=== PATIENT | female | born 1990 | race Two or more races ===

== ENCOUNTER 2024-04-24 23:57 | Emergency (ER) | payer MEDICAID, OTHER ==
[~2024-04-24] VITALS: Ht 162.6 cm; Wt 88.0 kg
--- NOTE | 2024-04-25 00:21 | ED.PDOC ---
DRAPERY CUTTER HPI Comments 33-year-old female came to ER due to vaginal bleeding. Patient is a , approximately 10 weeks . Earlier today, she started having lower abdominal cramping pain associated with vaginal bleed. Denies any fever. Vital signs were stable on arrival. Chief Complaint: Vaginal Bleed Time Seen by MD: 00:21 Reviewed Notes: Nurses Notes Allergies: Coded Allergies: NO KNOWN ALLERGIES (Unverified , 04/25/24) Information Source: Patient, Friend Mode of Arrival: Ambulatory Timing: Hours Severity: Mild Vaginal Lesions: None Bleeding Quality: Bright Red Vaginal Mass: None Onset Of Mass/Bleeding: Spontaneous Sexual Activity: Last Consensual [place]: Unknown History of: Current Associated Signs and Symptoms: Vaginal Bleeding, Abdominal Pain Past Medical History PAST MEDICAL HISTORY: Denies Past Medical History (Other): Patient states she is currently 10 weeks . Surgical History: SALES ACCOUNT REPRESENTATIVE History: Denies all SALES ACCOUNT REPRESENTATIVE Hx 3 Para 2 Family History Family History: Reviewed,noncontributory to illness Social History Smoker: Non-Smoker Alcohol: Denies ETOH Use Drugs: Denies Drug Use Lives In: Home Constitutional: denies: chills, diaphoresis, fatigue, fever, malaise, sweats, weakness, others EENTM: denies: blurred vision, double vision, ear bleeding, ear discharge, ear drainage, ear pain, ear ringing, eye pain, eye redness, hearing loss, mouth pain, mouth swelling, nasal discharge, nose bleeding, nose congestion, nose pain, photophobia, tearing, throat pain, throat swelling, voice changes, others Respiratory: denies: cough, hemoptysis, orthopnea, SOB at rest, shortness of breath, SOB with excertion, stridor, wheezing, others Cardiovascular: denies: chest pain, dizzy spells, diaphoresis, Dyspnea on exertion, edema, irregular heart beat, left arm pain, lightheadedness, palpitations, PND, syncope, others Gastrointestinal: reports: abdominal pain; denies: abdomen distended, blood streaked bowels, constipated, diarrhea, dysphagia, difficulty swallowing, hematemesis, melena, nausea, poor appetite, poor fluid intake, rectal bleeding, rectal pain, vomiting, others Genitourinary: reports: abnormal vagina bleeding; denies: burning, dyspareunia, dysuria, flank pain, frequency, hematuria, incontinence, pain, , vagina discharge, urgency, others Neurological: denies: dizziness, fainting, headache, left sided numbness, left sided weakness, numbness, paresthesia, pre-existing deficit, right sided numbness, right sided weakness, seizure, speech problems, tingling, tremors, weakness, others Musculoskeletal: denies: back pain, gout, joint pain, joint swelling, muscle pain, muscle stiffness, neck pain, others Integumetry: denies: bruises, change in color, change in hair/nails, dryness, laceration, lesions, lumps, rash, wounds, others Allergic/Immunocompromised: denies: Difficulty Healing, Frequent Infections, Hives, Itching, others Hematologic/Lymphatic: denies: anemia, blood clots, easy bleeding, easy bruising, swollen glands, others Endocrine: denies: excessive hunger, excessive sweating, excessive thirst, excessive urination, flushing, intolerance to cold, intolerance to heat, unexplained weight gain, unexplained weight loss, others Psychiatric: denies: anxiety, bipolar disorder, depression, hopeless, panic disorder, schizophrenia, sleepless, suicidal, others Physical Exam General Appearance: Moderate Distress ([id number] distress due to abdomin al pain and anxiety related to her spotting concerns.), Normal HEENT: Normal ENT Inspection, Pharynx Normal, TMs Normal Neck: Full Range of Motion, Non-Tender, Normal, Normal Inspection Respiratory: Chest Non-Tender, Lungs Clear, No Accessory Muscle Use, No Respiratory Distress, Normal Breath Sounds Cardiovascular: No Edema, No JVD, No Murmur, No Gallop, Normal Peripheral Pulses, Regular Rate/Rhythm Breast Exam: Deferred Gastrointestinal: No Organomegaly, No Pulsatile Mass, Normal Bowel Sounds, Soft, Other (Diffuse bilateral lower abdominal tenderness to palpation. No pulsatile masses. Difficult to assess due to body habitus.) Genitalia: Deferred Pelvic: Deferred Rectal: Deferred Extremities: No calf tenderness, Normal capillary refill, Normal inspection, Normal range of motion, Non-tender, No pedal edema Musculoskeletal : Apperance: Normal Neurologic: Alert, No Motor Deficits, Normal Affect, Normal Mood, No Sensory Deficits Cerebellar Function: Normal Reflexes: Normal Skin: Dry, Normal Color, Warm Lymphatic: No Adenopathy Was a procedure done? Was a procedure done?: No Differential Diagnosis (SALES ACCOUNT REPRESENTATIVE) Vaginal Bleeding: - Missed, - Threatened, Blood Loss Anemia, UTI Vaginal Discharge: X-Ray, Labs, Meds, VS Vital Signs Date Time Temp Pulse Resp B/P (MAP) Pulse Ox O2 Delivery O2 Flow Rate FiO2 04/25/24 00:50 88 18 99 Room Air 04/25/24 00:50 98.1 88 18 118/72 (87) 99 98.1 04/25/24 00:08 98.4 92 18 141/61 (87) 100 Lab Test 04/25/24 00:15 04/25/24 00:14 Range/Units Urine Color Colorless Yellow Urine Clarity Turbid H Clear Urine pH 7.5 5.0-9.0 Urine Specific [place] 1.022 1.001-1.035 Urine Protein Negative Negative Urine Ketones Negative Negative Urine Blood Negative Negative /uL Urine Nitrite 1+ H Negative Urine Bilirubin Negative Negative Urine Urobilinogen Normal Negative mg/dL Urine Leukocyte Esterase 1+ Negative /uL Urine RBC 2 0 - 4 /hpf Urine Microscopic WBC 15 H 0-5 /HPF Urine Squamous Epithelial Cells Few <5 /hpf Urine Transitional Epithelial Cells Few <2 /hpf Urine Renal Epithelial Cells Few None Seen /hpf Urine Amorphous Crystals Mod None Seen /hpf Urine Bacteria Many H None Seen /hpf Urine Mucus Few None Seen Urine Glucose Normal Normal mg/dL Beta HCG, Quantitative Pending Current Medications Medications (Trade) Dose Ordered Sig/[place]lin Route Start Time Stop Time Status Last Admin Ondansetron HCl (Zofran Po) 4 mg ONCE ONCE PO 04/25/24 00:30 04/25/24 00:31 DC 04/25/24 00:48 Acetaminophen (Tylenol Tablet Or Capsule) 1,000 mg ONCE ONCE PO 04/25/24 00:45 04/25/24 00:46 DC 04/25/24 00:48 X-Ray, Labs, Meds, VS Comment All studies performed the ED were evaluated by me personally. Urinalysis confirmed a UTI. OB ultrasound revealed a viable 10 week five day with a subchorionic hematoma and a uterine fibroid noted. Advised patient utilize antibiotics as directed until completion and additionally, follow up with radiator specialist for continued management of her . Advised patient that she should contact her OB early next week for discussions related to today's events. Time of 1ST Reevaluation: 01:28 Reevaluation 1ST: Improved Consultation: PCP, regulatory affairs internship Patient Education/Counseling: Diagnosis, Treatment Family Education/Counseling: Diagnosis, Treatment, No Family Present Departure 1 Departure Time of Disposition: :29 Impression: Primary Impression: Vaginal bleeding before 22 weeks gestation Additional Impression: UTI (urinary tract infection) Disposition: HOME / SELF CARE / HOMELESS Condition: Stable Additional Instructions: Advised patient utilize antibiotics as directed until completion. Patient is a ultrasound revealed a viable 10 week five day day, but there was also findings of a subchorionic hematoma as a uterine fibroid. Advised patient follow up with radiator specialist for conversation is related to today's findings. e-Prescriptions Ondansetron Odt 4MG Tab (ZOFRAN PO) 4 Mg Tb 4 MG PO Q6HP PRN, #15 TAB ODT TAB-DISSOLVE IN MOUTH, THEN SWALLOW Prov: ÁNGEL TIJERINA PAC 04/25/24 Acetaminophen (Tylenol Extra Strength) 500 Mg Tab 500 MG PO Q4HP PRN, #30 TAB Prov: ÁNGEL TIJERINA PAC 04/25/24 Cephalexin (KEFLEX CAPSULE) 250 Mg Cp 1 CAP PO QID for 7 Days, #28 CAP Prov: ÁNGEL TIJERINA 04/25/24 Discharged With: Self, Friend Critical Care Note Critical Care Time?: No Stability Stability form required: No Heart Score Heart Score: Heart Score Response (Comments) Value History N/A 0 EKG N/A 0 Age N/A 0 Risk Factors N/A 0 Troponin N/A 0 Total 0 I personally scribed for ÁNGEL TIJERINA PAC ([email or web address]) on 04/25/24 at 00:21. Electronically submitted by John Saeed ([email or web address]). ÁNGEL TIJERINA PAC Apr 25, 2024 00:21
[2024-04-25] MEDS: ACETAMINOPHEN 325 MG TAB PO ONE (00:41)
[2024-04-25 00:48] LABS: Urine Amorphous Crystal MOD /hpf (None Seen); Urine Bacteria MANY /hpf (None Seen); Urine Blood Negative /uL (Negative); Urine Clarity Turbid (Clear); Urine Color Colorless (Yellow); Urine Mucus FEW (None Seen); Urine Protein, UAD Negative (Negative); Urine Specific Gravity 1.022 (1.001-1.035); Urine Squamous Epithelial Cell FEW /hpf (<5); Urine Urobilinogen Normal (Negative); Urine WBC 15 /HPF (0-5); Urine pH 7.5 (5.0-9.0)
[2024-04-25] MEDS: ONDANSETRON ODT 4 MG TAB PO ONE (00:48)
[2024-04-25] MEDS: ACETAMINOPHEN 500 MG TAB or CAP PO ONE (00:48)
--- NOTE | 2024-04-25 01:18 | DVH ---
OB EVALUATION, LESS THAN 14 WEEKS CLINICAL HISTORY: Spotting COMPARISON: None TECHNIQUE: Grayscale, color-flow Doppler, and spectral Doppler ultrasound of the pelvis is performed by trace abdominal technique. FINDINGS: Uterus measures 10.4 x 8.8 x 5.8 cm. Heterogeneous lesion in the right uterine body measuring approxi mately 3.8 cm in diameter. Intrauterine gestational sac and pole identified. Yolk sac is also noted. Mean gestational sac diameter 5.1 cm. [place]-rump length 3.5 cm. Average ultrasound age 10 weeks 5 days. Estimated due william e 11/16/2024. heart rate 173 beats per minute. Approximately 2.4 x 0.4 x 2.1 cm curvilinear hypoechoic structure adjacent to the gestational sac. Right ovary measures 4.5 x 3.0 x 3.7 cm and contains an approximately 3.0 cm cystic structure which m ay represent a corpus luteum. Left ovary measures 2.9 x 1.7 x 2.5 cm. Both ovaries demonstrate dopple rable blood flow on spectral analysis. No significant free fluid identified in the cul-de-sac. IMPRESSION: Single living intrauterine gestation as above. Subchorionic hematoma. Recommend continue follow-up as clinically indicated. Possible fibroid within the right uterus. HS:Y
[2024-04-25] MEDS ORDERED: ZOFR4T PO (01:30)
[2024-04-25] MEDS ORDERED: ACET-1304 PO (01:30)
[2024-04-25] MEDS ORDERED: CEPH250C PO (01:30)
[2024-04-25 01:50] VITALS: BP 126/74; PULSE 86; RESP 17; TEMP 98.6; O2SAT 97
== END 2024-04-25 01:53 | disposition home or self-care (01) ==
LOC: ER 04-25
DX: O20.8 Other hemorrhage in early pregnancy (principal); R10.2 Pelvic and perineal pain; O23.41 Unspecified infection of urinary tract in pregnancy, first trimester; N39.0 Urinary tract infection, site not specified; Z3A.10 10 weeks gestation of pregnancy
CPT/HCPCS: 36415; 76801; 81001; 84702; 99284; Q0162

== ENCOUNTER 2024-05-18 19:12 | Emergency (ER) | payer OTHER ==
[~2024-05-18] VITALS: Ht 160 cm; Wt 86.8 kg
[~2024-05-18 19:12] MED LIST: ACET-1304 PO; CEPH250C PO; ZOFR4T PO
[2024-05-18 20:30] LABS: Urine Bacteria FEW /hpf (None Seen); Urine Blood 2+ /uL (Negative); Urine Clarity Clear (Clear); Urine Color Light-Yellow (Yellow); Urine Mucus FEW (None Seen); Urine Protein, UAD Negative (Negative); Urine Squamous Epithelial Cell FEW /hpf (<5); Urine Urobilinogen Normal (Negative); Urine WBC 15 /HPF (0-5); Urine pH 6.5 (5.0-9.0)
--- NOTE | 2024-05-18 20:44 | DVH ---
OB ULTRASOUND <14 WEEKS: HISTORY: VAG BLEED TECHNIQUE: Multiple real-time grayscale sonographic images of the pelvis with duplex Doppler color f low, spectral and M-mode analysis. TRANSDUCERS: COMPARISON: US OB ULTRASOUND COMP LESS 14WKS on DOS: 04/25/24 FINDINGS: There is a gravid uterus. The placenta is posterior. [place]-rump length is 7.7 cm in fetus appears to be in breech position. heart rate is 155 beats per minute The maternal uterus measures 12.5 x 6.1 by 15.1 cm. Amnion is not yet completely fused with the chorion.. Maternal left ovary measures 2.5 x 2.45 x 1.85 cm normal vascular flow maternal right ovary measures 3.8 x 1.4 x 3 cm and contains a 2.45 x 2.6 x 1.85 cm cyst. Vascular flow in the right ovary is jalen l. Additional measurements of the heart rate respectively 170 and 155 beats per minute. Gestational age by today's findings is 13 weeks 5 days +/-9 days estimated dated delivery is October 232024. IMPRESSION: 1. Single viable intrauterine with fetus in breech position. Placenta is posterior otherwis e unremarkable. Recommend follow-up study for the 28th week assess the exact position placenta with r espect of the internal os and for investigation anatomy.
--- NOTE | 2024-05-18 21:05 | ED.PDOC ---
History of Present Illness HPI Comments 33 y/o F presents with c/o abnormal vaginal bleeding and non-radiating, lower abdominal pain, today. Patient reports on being 14x weeks , currently, and endorses on unprovoked onset of symptoms, today. She comments on recent appointment and ultrasound with FINANCING ANALYST 1x week ago, with comment on progressively as normal without issues then. Chief Complaint: Vaginal Bleed Time Seen by MD: 19:41 Reviewed Notes: Nurses Notes, Medications, Allergies Allergies: Coded Allergies: NO KNOWN ALLERGIES (Unverified , 04/25/24) Home Meds Active Scripts Ondansetron Odt 4MG Tab (ZOFRAN PO) 4 Mg Tb, 4 MG PO Q6HP PRN, #15 TAB ODT TAB-DISSOLVE IN MOUTH, THEN SWALLOW Prov:ÁNGEL TIJERINA PAC 04/25/24 Acetaminophen (Tylenol Extra Strength) 500 Mg Tab, 500 MG PO Q4HP PRN, #30 TAB Prov:ÁNGEL TIJERINA PAC 04/25/24 Cephalexin (KEFLEX CAPSULE) 250 Mg Cp, 1 CAP PO QID for 7 Days, #28 CAP Prov:ÁNGEL TIJERINA PAC 04/25/24 Information Source: Patient Mode of Arrival: Ambulatory Severity: Moderate Timing: Hours Duration: Since onset Prehospital treatment: None Past Medical History PAST MEDICAL HISTORY: Denies Surgical History: MANAGER MATERIAL History: Denies all MANAGER MATERIAL Hx Family History Family History: Reviewed,noncontributory to illness Social History Smoker: Non-Smoker Alcohol: Denies ETOH Use Drugs: Denies Drug Use Lives In: Home Gastrointestinal: reports: abdominal pain Genitourinary: reports: abnormal vagina bleeding All Other Systems: Reviewed and Negative (negative unless otherwise stated above or in HPI) Physical Exam General Appearance: No Apparent Distress, Obese HEENT: Normal ENT Inspection, Pharynx Normal, TMs Normal Neck: Full Range of Motion, Non-Tender, Normal, Normal Inspection Respiratory: Chest Non-Tender, Lungs Clear, No Accessory Muscle Use, No Respiratory Distress, Normal Breath Sounds Cardiovascular: No Edema, No JVD, No Murmur, No Gallop, Normal Peripheral Pulses, Regular Rate/Rhythm Breast Exam: Deferred Gastrointestinal: No Organomegaly, Non Tender, No Pulsatile Mass, Normal Bowel Sounds, Soft Genitalia: Deferred Pelvic: Deferred Rectal: Deferred Extremities: No calf tenderness, Normal capillary refill, Normal inspection, Normal range of motion, Non-tender, No pedal edema Musculoskeletal : Apperance: Normal Neurologic: Alert, pain medicine physician II-XII nml as Tested, No Motor Deficits, Normal Affect, Normal Mood, No Sensory Deficits Cerebellar Function: Normal Reflexes: Normal Skin: Dry, Normal Color, Warm Lymphatic: No Adenopathy Was a procedure done? Was a procedure done?: No Differential Dx Considerations may include: at-risk , menorrhagia, dysmenorrhea X-Ray, Labs, Meds, VS Vital Signs Date Time Temp Pulse Resp B/P (MAP) Pulse Ox O2 Delivery O2 Flow Rate FiO2 05/18/24 19:35 99.1 98 18 135/81 (99) 100 Lab Test 05/18/24 20:38 05/18/24 19:44 Range/Units White Blood Count 11.0 H 4.4-10.8 10^3/uL Red Blood Count 4.29 4.0-5.20 10^6/uL Hemoglobin 12.8 12.2-16.2 g/dL Hematocrit 37.4 36.0-46.0 % Mean Corpuscular Volume 87.2 80.0-100.0 fL Mean Corpuscular Hemoglobin 29.9 28.0-32.0 pg Mean Corpuscular Hemoglobin Concent 34.3 32.0-36.0 g/dL Red Cell Distribution Width 13.3 11.8-14.3 % Platelet Count 210 140-450 10^3/uL Mean Platelet Volume 8.2 6.9-10.8 fL Neutrophils (%) (Auto) 77.6 37.0-80.0 % Lymphocytes (%) (Auto) 17.5 10.0-50.0 % Monocytes (%) (Auto) 3.9 0.0-12.0 % Eosinophils (%) (Auto) 0.4 0.0-7.0 % Basophils (%) (Auto) 0.6 0.0-2.0 % Neutrophils # (Auto) 8.6 1.6-8.6 10 ^3/uL Lymphocytes # (Auto) 1.9 0.4-5.4 10 ^3/uL Monocytes # (Auto) 0.4 0-1.3 10 ^3/uL Eosinophils # (Auto) 0 0-0.8 10 ^3/uL Basophils # (Auto) 0.1 0-0.2 10 ^3/uL Nucleated Red Blood Cells 0.0 % Sodium Level 136 136-145 mmol/L Potassium Level 3.7 3.5-5.1 mmol/L Chloride Level 103 98-107 mmol/L Carbon Dioxide Level 23 20-31 mmol/L Anion Gap 10 5-15 Blood Urea Nitrogen < 5 L 9-23 mg/dL Creatinine 0.51 L 0.550-1.02 mg/dL Glomerular Filtration Rate Calc 126 >90 mL/min BUN/Creatinine Ratio 9.8 L 10.0-20.0 Serum Glucose 88 74-106 mg/dL Calcium Level 9.8 8.7-10.4 mg/dL Total Bilirubin 0.3 0.2-1.0 mg/dL Aspartate Amino Transferase (AST) 16 13-40 U/L Alanine Aminotransferase (ALT) 20 7-40 U/L Alkaline Phosphatase 53 46-116 U/L Total Protein 7.7 5.7-8.2 g/dL Albumin 4.6 3.2-4.8 g/dL Beta HCG, Quantitative 89078.0 H 1.5-4.2 mIU/mL Urine Color Light-yellow Yellow Urine Clarity Clear Clear Urine pH 6.5 5.0-9.0 Urine Specific [place] 1.010 1.001-1.035 Urine Protein Negative Negative Urine Ketones 1+ H Negative Urine Blood 2+ H Negative /uL Urine Nitrite Negative Negative Urine Bilirubin Negative Negative Urine Urobilinogen Normal Negative mg/dL Urine Leukocyte Esterase 1+ Negative /uL Urine RBC 2 0 - 4 /hpf Urine Microscopic WBC 15 H 0-5 /HPF Urine Squamous Epithelial Cells Few <5 /hpf Urine Bacteria Few H None Seen /hpf Urine Mucus Few None Seen Urine Glucose Normal Normal mg/dL [place] [id number] Ph: [phone] DIAGNOSTIC IMAGING Diagnostic Imaging Report : [id number] Signed PATIENT: TYRONE MONTOYA ACCT: [id number] UNIT: [id number] : 1990 LOC: ER ROOM / BED: / AGE / SEX: 33 / F ADM STATUS: REG ER SERVICE 54 ORDERING PHYSICIAN: KINDRA PARADA PROCEDURE(s): OB4US - OB ULTRASOUND COMP LESS 14WKS REASON: VAG BLEED ORDER NUMBER(s): [id number], ACCESSION NUMBER(s): [id number] OB ULTRASOUND <14 WEEKS: HISTORY: VAG BLEED TECHNIQUE: Multiple real-time grayscale sonographic images of the pelvis with duplex Doppler color flow, spectral and M-mode analysis. TRANSDUCERS: COMPARISON: US OB ULTRASOUND COMP LESS 14WKS on DOS: 04/25/24 FINDINGS: There is a gravid uterus. The placenta is posterior. [place]-rump length is 7.7 cm in fetus appears to be in breech position. heart rate is 155 beats per minute The maternal uterus measures 12.5 x 6.1 by 15.1 cm. Amnion is not yet completely fused with the chorion.. Maternal left ovary measures 2.5 x 2.45 x 1.85 cm normal vascular flow maternal right ovary measures 3.8 x 1.4 x 3 cm and contains a 2.45 x 2.6 x 1.85 cm cyst. Vascular flow in the right ovary is normal. Additional measurements of the heart rate respectively 170 and 155 beats per minute. Gestational age by today's findings is 13 weeks 5 days +/-9 days estimated dated delivery is November 18, 2024. IMPRESSION: 1. Single viable intrauterine with fetus in breech position. Placenta is posterior otherwise unremarkable. Recommend follow-up study for the 28th week assess the exact position placenta with respect of the internal os and for investigation anatomy. ATED BY: GABINO ORTIZ MD DICTATED DATE/TIME: 05/18/242041 SIGNED BY: GABINO ORTIZ MD SIGNED DATE/TIME: 05/18/242041 CC: X-Ray, Labs, Meds, VS Comment Imaging: X-rays and CT scans were reviewed and interpreted by this provider, imaging shows no fractures and no pathological disease. Pending radiology review. Laboratory: Labs reviewed and interpreted by this provider. No significant abnormalities noted. Patient has prior medical visits reviewed. Med reconciliation performed Vital signs reviewed Time of 1ST Reevaluation: 23:39 Reevaluation 1ST: Improved Patient Education/Counseling: Diagnosis, Treatment, Need For Follow Up (Follow up in two days with OBGYN or in the emergency department for reassessment) Family Education/Counseling: No Family Present Departure 1 Departure Time of Disposition: 23:39 Impression: Primary Impression: Vaginal bleeding before 22 weeks gestation Additional Impression: Second trimester Disposition: HOME / SELF CARE / HOMELESS Condition: Fair Discharged With: Self Critical Care Note Critical Care Time?: No Stability Stability form required: No Heart Score Heart Score: Heart Score Response (Comments) Value History N/A 0 EKG N/A 0 Age N/A 0 Risk Factors N/A 0 Troponin N/A 0 Total 0 I personally scribed for KINDRA PARADA ([email or web address]) on 05/18/24 at 21:04. Electronically submitted by Jason Ugarte ([email or web address]). KINDRA PARADA May 18, 2024 21:04
[2024-05-18 21:32] LABS: Basophils # (auto) 0.1 10 ^3/uL (0-0.2); Basophils % (auto) 0.6 % (0.0-2.0); Eosinophils # (auto) 0 10 ^3/uL (0-0.8); Eosinophils % (auto) 0.4 % (0.0-7.0); Hematocrit 37.4 % (36.0-46.0); Hemoglobin 12.8 g/dL (12.2-16.2); Lymphocytes # (auto) 1.9 10 ^3/uL (0.4-5.4); Lymphocytes % (auto) 17.5 % (10.0-50.0); Mean Corpuscular Hemoglobin 29.9 pg (28.0-32.0); Mean Corpuscular Hgb Conc. 34.3 g/dL (32.0-36.0); Mean Corpuscular Volume 87.2 fL (80.0-100.0); Monocytes # (auto) 0.4 10 ^3/uL (0-1.3); Monocytes % (auto) 3.9 % (0.0-12.0); Neutrophils # (auto) 8.6 10 ^3/uL (1.6-8.6); Neutrophils % (auto) 77.6 % (37.0-80.0); Platelet Count (auto) 210 10^3/uL (140-450); Red Blood Cells 4.29 10^6/uL (4.0-5.20); Red Cell Distribution Width 13.3 % (11.8-14.3)
[2024-05-18 21:43] LABS: Alanine Aminotransferase 20 U/L (7-40); Albumin 4.6 g/dL (3.2-4.8); Alkaline Phosphatase 53 U/L (46-116); Anion Gap 10 (5-15); Aspartate Aminotransferase 16 U/L (13-40); Bilirubin, Total 0.3 mg/dL (0.2-1.0); Calcium 9.8 mg/dL (8.7-10.4); Carbon Dioxide 23 mmol/L (20-31); Chloride 103 mmol/L (98-107); Glucose 88 mg/dL (74-106); Potassium 3.7 mmol/L (3.5-5.1); Sodium 136 mmol/L (136-145)
[2024-05-18 21:44] LABS: BUN/Creatinine Ratio 9.8 (10.0-20.0); Blood Urea Nitrogen < 5 mg/dL (9-23); Total Protein 7.7 g/dL (5.7-8.2)
[2024-05-19 00:30] VITALS: BP 112/67; PULSE 86; RESP 20; TEMP 98.1; O2SAT 98
== END 2024-05-19 00:47 | disposition home or self-care (01) ==
LOC: ER 19:12
DX: O46.92 Antepartum hemorrhage, unspecified, second trimester (principal); O26.892 Other specified pregnancy related conditions, second trimester; R10.2 Pelvic and perineal pain; Z3A.13 13 weeks gestation of pregnancy; Z79.899 Other long term (current) drug therapy; Z98.890 Other specified postprocedural states
CPT/HCPCS: 36415; 76801; 80053; 81001; 84702; 85025

== ENCOUNTER 2024-06-06 13:45 | Emergency (ER) | payer MEDICAID, OTHER ==
[~2024-06-06] VITALS: Ht 160 cm; Wt 88.4 kg
--- NOTE | 2024-06-06 14:31 | ED.PDOC ---
GI ASSESSMENT HPI Comments 33 year old female presents to the ED with a chief complaint of abdominal pain onset today (06/06/24). Patient states she woke up today around 07:00 experiencing epigastric pain, nausea, dizziness, headache took Tylenol for pain, with slight improvement of symptoms, rates pain 4/10. She is currently 16 weeks , noticed blood when she wiped. Denies any PMHx as well as vomiting, diarrhea, dysuria, chest pain, shortness of breath. No other symptoms or modifying factors present at this time. Chief Complaint: Abdominal Pain Time Seen by MD: 14:20 Primary Care Provider: Katrin Reviewed Notes: Nurses Notes, Medications, Allergies Allergies: Coded Allergies: NO KNOWN ALLERGIES (Unverified , 04/25/24) Home Meds Active Scripts Ondansetron Odt 4MG Tab (ZOFRAN PO) 4 Mg Tb, 4 MG PO Q6HP PRN, #15 TAB ODT TAB-DISSOLVE IN MOUTH, THEN SWALLOW Prov:ÁNGEL TIJERINA PAC 04/25/24 Acetaminophen (Tylenol Extra Strength) 500 Mg Tab, 500 MG PO Q4HP PRN, #30 TAB Prov:ÁNGEL TIJERINA PAC 04/25/24 Cephalexin (KEFLEX CAPSULE) 250 Mg Cp, 1 CAP PO QID for 7 Days, #28 CAP Prov:ÁNGEL TIJERINA PAC 04/25/24 Information Source: Patient Mode of Arrival: Ambulatory Timing: Hours Duration: Since onset Prehospital treatment: None Quality: Aching Vomitus: None Severity: Moderate Recent: None Recent Hx of: Current Pain Location: Epigastric Modifying Factors: Nothing Associated sign and symptoms: Nausea, Abdominal Pain Past Medical History PAST MEDICAL HISTORY: Denies Surgical History: SCREEN VENT BINDER History: Denies all SCREEN VENT BINDER Hx Family History Family History: Reviewed,noncontributory to illness Social History Smoker: Non-Smoker Alcohol: Denies ETOH Use Drugs: Denies Drug Use Lives In: Home Constitutional: denies: chills, diaphoresis, fatigue, fever, malaise, sweats, weakness, others EENTM: denies: blurred vision, double vision, ear bleeding, ear discharge, ear drainage, ear pain, ear ringing, eye pain, eye redness, hearing loss, mouth pain, mouth swelling, nasal discharge, nose bleeding, nose congestion, nose pain, photophobia, tearing, throat pain, throat swelling, voice changes, others Respiratory: denies: cough, hemoptysis, orthopnea, SOB at rest, shortness of breath, SOB with excertion, stridor, wheezing, others Cardiovascular: denies: chest pain, dizzy spells, diaphoresis, Dyspnea on exertion, edema, irregular heart beat, left arm pain, lightheadedness, palpitations, PND, syncope, others Gastrointestinal: reports: abdominal pain, nausea; denies: abdomen distended, blood streaked bowels, constipated, diarrhea, dysphagia, difficulty swallowing, hematemesis, melena, poor appetite, poor fluid intake, rectal bleeding, rectal pain, vomiting, others Genitourinary: reports: hematuria, ; denies: abnormal vagina bleeding, burning, dyspareunia, dysuria, flank pain, frequency, incontinence, pain, vagina discharge, urgency, others Neurological: reports: dizziness, headache; denies: fainting, left sided numbness, left sided weakness, numbness, paresthesia, pre-existing deficit, right sided numbness, right sided weakness, seizure, speech problems, tingling, tremors, weakness, others Musculoskeletal: denies: back pain, gout, joint pain, joint swelling, muscle pain, muscle stiffness, neck pain, others Integumetry: denies: bruises, change in color, change in hair/nails, dryness, laceration, lesions, lumps, rash, wounds, others Allergic/Immunocompromised: denies: Difficulty Healing, Frequent Infections, Hives, Itching, others Hematologic/Lymphatic: denies: anemia, blood clots, easy bleeding, easy bruising, swollen glands, others Endocrine: denies: excessive hunger, excessive sweating, excessive thirst, excessive urination, flushing, intolerance to cold, intolerance to heat, unexplained weight gain, unexplained weight loss, others Psychiatric: denies: anxiety, bipolar disorder, depression, hopeless, panic disorder, schizophrenia, sleepless, suicidal, others All Other Systems: Reviewed and Negative Physical Exam General Appearance: Mild Distress HEENT: Normal ENT Inspection, Pharynx Normal, TMs Normal Neck: Full Range of Motion, Non-Tender, Normal, Normal Inspection Respiratory: Chest Non-Tender, Lungs Clear, No Accessory Muscle Use, No Respiratory Distress, Normal Breath Sounds Cardiovascular: No Edema, No JVD, No Murmur, No Gallop, Normal Peripheral Pulses, Regular Rate/Rhythm Breast Exam: Deferred Gastrointestinal: No Organomegaly, Non Tender, No Pulsatile Mass, Normal Bowel Sounds, Soft Genitalia: Deferred Pelvic: Deferred Rectal: Deferred Extremities: No calf tenderness, Normal capillary refill, Normal inspection, Normal range of motion, Non-tender, No pedal edema Musculoskeletal : Apperance: Normal Neurologic: Alert, trolley coach driver II-XII nml as Tested, No Motor Deficits, Normal Affect, Normal Mood, No Sensory Deficits Cerebellar Function: Normal Reflexes: Normal Skin: Dry, Normal Color, Warm Lymphatic: No Adenopathy Was a procedure done? Was a procedure done?: No GI differential Dx Differential Diagnosis: Gastritis/PUD, Gastroenteritis, UTI, Electrolyte Imbalance, Food Poisoning, Other (Threatened ) X-Ray, Labs, Meds, VS Vital Signs Date Time Temp Pulse Resp B/P (MAP) Pulse Ox O2 Delivery O2 Flow Rate FiO2 06/06/24 13:57 99.2 113 16 127/69 (88) 97 99.2 Lab Test 06/06/24 14:41 06/06/24 13:55 Range/Units White Blood Count 10.3 4.4-10.8 10^3/uL Red Blood Count 4.23 4.0-5.20 10^6/uL Hemoglobin 12.9 12.2-16.2 g/dL Hematocrit 36.8 36.0-46.0 % Mean Corpuscular Volume 87.0 80.0-100.0 fL Mean Corpuscular Hemoglobin 30.4 28.0-32.0 pg Mean Corpuscular Hemoglobin Concent 34.9 32.0-36.0 g/dL Red Cell Distribution Width 13.1 11.8-14.3 % Platelet Count 241 140-450 10^3/uL Mean Platelet Volume 7.4 6.9-10.8 fL Neutrophils (%) (Auto) 78.6 37.0-80.0 % Lymphocytes (%) (Auto) 16.3 10.0-50.0 % Monocytes (%) (Auto) 4.0 0.0-12.0 % Eosinophils (%) (Auto) 0.5 0.0-7.0 % Basophils (%) (Auto) 0.6 0.0-2.0 % Neutrophils # (Auto) 8.1 1.6-8.6 10 ^3/uL Lymphocytes # (Auto) 1.7 0.4-5.4 10 ^3/uL Monocytes # (Auto) 0.4 0-1.3 10 ^3/uL Eosinophils # (Auto) 0.1 0-0.8 10 ^3/uL Basophils # (Auto) 0.1 0-0.2 10 ^3/uL Nucleated Red Blood Cells 0.0 % Beta HCG, Quantitative 97367.9 H 1.5-4.2 mIU/mL Urine Color Colorless Yellow Urine Clarity Clear Clear Urine pH 6.5 5.0-9.0 Urine Specific [place] 1.003 1.001-1.035 Urine Protein Negative Negative Urine Ketones 1+ H Negative Urine Blood Negative Negative /uL Urine Nitrite Negative Negative Urine Bilirubin Negative Negative Urine Urobilinogen Normal Negative mg/dL Urine Leukocyte Esterase Negative Negative /uL Urine RBC 1 0 - 4 /hpf Urine Microscopic WBC 1 0-5 /HPF Urine Squamous Epithelial Cells Few <5 /hpf Urine Bacteria Few H None Seen /hpf Urine Glucose Normal Normal mg/dL The patient's CBC is within normal limits The [place] [address] The patient was being discharged with a diagnosis of abdominal pain in The patient was told to take acetaminophen for the pain The patient will return to the emergency department's condition worsens. Images Reviewed?: Images reviewed and evaluated by me Time of 1ST Reevaluation: 14:50 Reevaluation 1ST: Unchanged Patient Education/Counseling: Diagnosis, Treatment, Prognosis, Need For Follow Up Family Education/Counseling: No Family Present Departure 1 Departure Time of Disposition: 15:33 Impression: Primary Impression: Threatened Additional Impression: Abdominal pain during Qualified Codes: O26.899 - Other specified related conditions, unspecified trimester; R10.9 - Unspecified abdominal pain Disposition: 01 HOME / SELF CARE / HOMELESS Condition: Fair Discharged With: Self Critical Care Note Critical Care Time?: No Stability Stability form required: No Heart Score Heart Score: Heart Score Response (Comments) Value History N/A 0 EKG N/A 0 Age N/A 0 Risk Factors N/A 0 Troponin N/A 0 Total 0 I personally scribed for FRANTZ ISIDRO MD ([email or web address]) on 06/06/24 at 14:31. Electronically submitted by Radha Pickens ([email or web address]). FRANTZ ISIDRO MD Jun 06, 2024 14:31
[2024-06-06 14:50] LABS: Urine Bacteria FEW /hpf (None Seen); Urine Blood Negative /uL (Negative); Urine Clarity Clear (Clear); Urine Color Colorless (Yellow); Urine Protein, UAD Negative (Negative); Urine Specific Gravity 1.003 (1.001-1.035); Urine Squamous Epithelial Cell FEW /hpf (<5); Urine Urobilinogen Normal (Negative); Urine WBC 1 /HPF (0-5); Urine pH 6.5 (5.0-9.0)
[2024-06-06 14:51] LABS: Basophils # (auto) 0.1 10 ^3/uL (0-0.2); Basophils % (auto) 0.6 % (0.0-2.0); Eosinophils # (auto) 0.1 10 ^3/uL (0-0.8); Eosinophils % (auto) 0.5 % (0.0-7.0); Hematocrit 36.8 % (36.0-46.0); Hemoglobin 12.9 g/dL (12.2-16.2); Lymphocytes # (auto) 1.7 10 ^3/uL (0.4-5.4); Lymphocytes % (auto) 16.3 % (10.0-50.0); Mean Corpuscular Hemoglobin 30.4 pg (28.0-32.0); Mean Corpuscular Hgb Conc. 34.9 g/dL (32.0-36.0); Monocytes # (auto) 0.4 10 ^3/uL (0-1.3); Neutrophils # (auto) 8.1 10 ^3/uL (1.6-8.6); Neutrophils % (auto) 78.6 % (37.0-80.0); Platelet Count (auto) 241 10^3/uL (140-450); Red Blood Cells 4.23 10^6/uL (4.0-5.20); Red Cell Distribution Width 13.1 % (11.8-14.3); White Blood Cell 10.3 10^3/uL (4.4-10.8)
--- NOTE | 2024-06-06 15:29 | DVH ---
LIMITED OB ULTRASOUND > 14 WKS: HISTORY: pain and bleeding TECHNIQUE: Multiple real-time grayscale images of the gravid uterus with duplex Doppler color flow an d M-mode spectral analysis. TRANSDUCER: Transabdominal FINDINGS: IUP single live fetus at 16 weeks 5 days plus or minus 1 week 1 day based on composite averages of th e BPD, head circumference, abdominal circumference and femur length Estimated weight 166.48 g +/-24.97 g grams heart rate 138 beats per minute MVP: 3.16 cm cm Cervix 3.87 cm Transverse head on left Presentation Posterior Grade 2 Placenta without previa or abruption. IMPRESSION: 1. IUP single live fetus at 16 weeks 5 days AUA corresponding to an JOSY of 11/16/2024 2. FHR: 138 beats per minute
[2024-06-06 16:01] VITALS: BP 117/78; PULSE 104; RESP 18; TEMP 97.2; O2SAT 98
== END 2024-06-06 16:03 | disposition home or self-care (01) ==
LOC: ER 13:45
DX: O20.0 Threatened abortion (principal); Z3A.16 16 weeks gestation of pregnancy; Z79.899 Other long term (current) drug therapy; Z98.890 Other specified postprocedural states
CPT/HCPCS: 36415; 76805; 81001; 84702; 85025

== ENCOUNTER 2024-06-27 02:28 | Emergency (ER) | payer MEDICAID ==
[~2024-06-27] VITALS: Ht 160 cm; Wt 87.4 kg
--- NOTE | 2024-06-27 02:58 | ED.PDOC ---
MOLASSES FEED MIXER HPI Comments 33-year-old female presents with a chief complaint of vaginal bleed x onset midnight with associated . Patient is 19 weeks , . Patient mentions that starting at midnight she began to have sudden onset of bleeding and it was bright red in color. Patient also mentions that she was passing clots as well. Patient denies any penetrating trauma prior to onset of symptoms. Patient mentions that she also has some light abdominal cramping. Chief Complaint: Vaginal Bleed Time Seen by MD: 02:47 Reviewed Notes: Medications, Allergies Allergies: Coded Allergies: NO KNOWN ALLERGIES (Unverified , 04/25/24) Home Meds Active Scripts Ondansetron Odt 4MG Tab (ZOFRAN PO) 4 Mg Tb, 4 MG PO Q6HP PRN, #15 TAB ODT TAB-DISSOLVE IN MOUTH, THEN SWALLOW Prov:ÁNGEL TIJERINA [facility] 04/25/24 Acetaminophen (Tylenol Extra Strength) 500 Mg Tab, 500 MG PO Q4HP PRN, #30 TAB Prov:ÁNGEL TIJERINA 04/25/24 Cephalexin (KEFLEX CAPSULE) 250 Mg Cp, 1 CAP PO QID for 7 Days, #28 CAP Prov:ÁNGEL TIJERINA 04/25/24 Information Source: Patient Mode of Arrival: Ambulatory Timing: Hours Prehospital treatment: None Severity: Moderate Bleeding Quality: Bright Red, Clotted Onset Of Mass/Bleeding: Spontaneous Sexual Activity: Last Consensual [place]: Weeks Control: None History of: Current Blood Type: Unknown Past Medical History PAST MEDICAL HISTORY: Denies Surgical History: CULINARY INTERNSHIP History: Denies all CULINARY INTERNSHIP Hx Family History Family History: Reviewed,noncontributory to illness Social History Smoker: Non-Smoker Alcohol: Denies ETOH Use Drugs: Denies Drug Use Lives In: Home Constitutional: denies: chills, diaphoresis, fatigue, fever, malaise, sweats, weakness, others EENTM: denies: blurred vision, double vision, ear bleeding, ear discharge, ear drainage, ear pain, ear ringing, eye pain, eye redness, hearing loss, mouth pain, mouth swelling, nasal discharge, nose bleeding, nose congestion, nose pain, photophobia, tearing, throat pain, throat swelling, voice changes, others Respiratory: denies: cough, hemoptysis, orthopnea, SOB at rest, shortness of breath, SOB with excertion, stridor, wheezing, others Cardiovascular: denies: chest pain, dizzy spells, diaphoresis, Dyspnea on exertion, edema, irregular heart beat, left arm pain, lightheadedness, palpitations, PND, syncope, others Gastrointestinal: denies: abdomen distended, abdominal pain, blood streaked bowels, constipated, diarrhea, dysphagia, difficulty swallowing, hematemesis, melena, nausea, poor appetite, poor fluid intake, rectal bleeding, rectal pain, vomiting, others Genitourinary: reports: abnormal vagina bleeding, ; denies: burning, dyspareunia, dysuria, flank pain, frequency, hematuria, incontinence, pain, vagina discharge, urgency, others Neurological: denies: dizziness, fainting, headache, left sided numbness, left sided weakness, numbness, paresthesia, pre-existing deficit, right sided numbness, right sided weakness, seizure, speech problems, tingling, tremors, weakness, others Musculoskeletal: denies: back pain, gout, joint pain, joint swelling, muscle pain, muscle stiffness, neck pain, others Integumetry: denies: bruises, change in color, change in hair/nails, dryness, laceration, lesions, lumps, rash, wounds, others Allergic/Immunocompromised: denies: Difficulty Healing, Frequent Infections, Hives, Itching, others Hematologic/Lymphatic: denies: anemia, blood clots, easy bleeding, easy bruising, swollen glands, others Endocrine: denies: excessive hunger, excessive sweating, excessive thirst, excessive urination, flushing, intolerance to cold, intolerance to heat, unexplained weight gain, unexplained weight loss, others Psychiatric: denies: anxiety, bipolar disorder, depression, hopeless, panic disorder, schizophrenia, sleepless, suicidal, others All Other Systems: Reviewed and Negative Physical Exam General Appearance: No Apparent Distress, Normal HEENT: Normal ENT Inspection, Pharynx Normal, TMs Normal Neck: Full Range of Motion, Non-Tender, Normal, Normal Inspection Respiratory: Chest Non-Tender, Lungs Clear, No Accessory Muscle Use, No Respiratory Distress, Normal Breath Sounds Cardiovascular: No Edema, No JVD, No Murmur, No Gallop, Normal Peripheral Pulses, Regular Rate/Rhythm Breast Exam: Deferred Gastrointestinal: No Organomegaly, Non Tender, No Pulsatile Mass, Normal Bowel Sounds, Soft Genitalia: Deferred Pelvic: Deferred Rectal: Deferred Extremities: No calf tenderness, Normal capillary refill, Normal inspection, Normal range of motion, Non-tender, No pedal edema Musculoskeletal : Apperance: Normal Neurologic: Alert, showcase maker II-XII nml as Tested, No Motor Deficits, Normal Affect, Normal Mood, No Sensory Deficits Cerebellar Function: Normal Reflexes: Normal Skin: Dry, Normal Color, Warm Lymphatic: No Adenopathy Was a procedure done? Was a procedure done?: No Differential Diagnosis (CULINARY INTERNSHIP) Vaginal Bleeding: - Complete, - Incomplete, - Inevitable, - Missed, - Threatened, Ectopic , Placenta Previa, Trauma, UTI, Vaginitis, Other X-Ray, Labs, Meds, VS Vital Signs Date Time Temp Pulse Resp B/P (MAP) Pulse Ox O2 Delivery O2 Flow Rate FiO2 06/27/24 02:41 98.6 90 15 122/68 (86) 100 98.6 Lab Test 06/27/24 02:57 06/27/24 02:40 Range/Units White Blood Count 9.9 4.4-10.8 10^3/uL Red Blood Count 3.97 L 4.0-5.20 10^6/uL Hemoglobin 12.3 12.2-16.2 g/dL Hematocrit 35.1 L 36.0-46.0 % Mean Corpuscular Volume 88.4 80.0-100.0 fL Mean Corpuscular Hemoglobin 31.0 28.0-32.0 pg Mean Corpuscular Hemoglobin Concent 35.0 32.0-36.0 g/dL Red Cell Distribution Width 13.5 11.8-14.3 % Platelet Count 226 140-450 10^3/uL Mean Platelet Volume 7.8 6.9-10.8 fL Neutrophils (%) (Auto) 65.9 37.0-80.0 % Lymphocytes (%) (Auto) 26.4 10.0-50.0 % Monocytes (%) (Auto) 6.1 0.0-12.0 % Eosinophils (%) (Auto) 1.2 0.0-7.0 % Basophils (%) (Auto) 0.4 0.0-2.0 % Neutrophils # (Auto) 6.5 1.6-8.6 10 ^3/uL Lymphocytes # (Auto) 2.6 0.4-5.4 10 ^3/uL Monocytes # (Auto) 0.6 0-1.3 10 ^3/uL Eosinophils # (Auto) 0.1 0-0.8 10 ^3/uL Basophils # (Auto) 0 0-0.2 10 ^3/uL Nucleated Red Blood Cells 0.0 % Sodium Level 137 136-145 mmol/L Potassium Level 4.1 3.5-5.1 mmol/L Chloride Level 103 98-107 mmol/L Carbon Dioxide Level 25 20-31 mmol/L Anion Gap 9 5-15 Blood Urea Nitrogen 9 9-23 mg/dL Creatinine 0.47 L 0.550-1.02 mg/dL Glomerular Filtration Rate Calc 128 >90 mL/min BUN/Creatinine Ratio 19.1 10.0-20.0 Serum Glucose 89 74-106 mg/dL Calcium Level 9.6 8.7-10.4 mg/dL Beta HCG, Quantitative 9501.2 H 1.5-4.2 mIU/mL Urine Color Colorless Yellow Urine Clarity Clear Clear Urine pH 6.5 5.0-9.0 Urine Specific [place] 1.007 1.001-1.035 Urine Protein Negative Negative Urine Ketones Negative Negative Urine Blood 3+ H Negative /uL Urine Nitrite Negative Negative Urine Bilirubin Negative Negative Urine Urobilinogen Normal Negative mg/dL Urine Leukocyte Esterase Negative Negative /uL Urine RBC 3 0 - 4 /hpf Urine Microscopic WBC 1 0-5 /HPF Urine Squamous Epithelial Cells Few <5 /hpf Urine Bacteria Few H None Seen /hpf Urine Glucose Normal Normal mg/dL Time of 1ST Reevaluation: 03:17 Reevaluation 1ST: Unchanged Patient Education/Counseling: Diagnosis, Treatment, Prognosis Family Education/Counseling: No Family Present Departure 1 Departure Time of Disposition: 05:36 Impression: Primary Impression: 19 weeks gestation of Additional Impression: Threatened miscarriage Disposition: 01 HOME / SELF CARE / HOMELESS Condition: Stable Discharged With: Self Critical Care Note Critical Care Time?: No Stability Stability form required: No Heart Score Heart Score: Heart Score Response (Comments) Value History N/A 0 EKG N/A 0 Age N/A 0 Risk Factors N/A 0 Troponin N/A 0 Total 0 I personally scribed for DAVID PAREDES MD ([email or web address]) on 06/27/24 at 02:58. Electronically submitted by Alexander Quijano ([email or web address]). DAVID PAREDES MD Jun 27, 2024 02:58
[2024-06-27 03:18] LABS: Basophils # (auto) 0 10 ^3/uL (0-0.2); Basophils % (auto) 0.4 % (0.0-2.0); Eosinophils # (auto) 0.1 10 ^3/uL (0-0.8); Eosinophils % (auto) 1.2 % (0.0-7.0); Hematocrit 35.1 % (36.0-46.0); Hemoglobin 12.3 g/dL (12.2-16.2); Lymphocytes # (auto) 2.6 10 ^3/uL (0.4-5.4); Lymphocytes % (auto) 26.4 % (10.0-50.0); Mean Corpuscular Volume 88.4 fL (80.0-100.0); Monocytes # (auto) 0.6 10 ^3/uL (0-1.3); Monocytes % (auto) 6.1 % (0.0-12.0); Neutrophils # (auto) 6.5 10 ^3/uL (1.6-8.6); Neutrophils % (auto) 65.9 % (37.0-80.0); Platelet Count (auto) 226 10^3/uL (140-450); Red Blood Cells 3.97 10^6/uL (4.0-5.20); Red Cell Distribution Width 13.5 % (11.8-14.3); White Blood Cell 9.9 10^3/uL (4.4-10.8)
[2024-06-27 03:22] LABS: Urine Bacteria FEW /hpf (None Seen); Urine Blood 3+ /uL (Negative); Urine Clarity Clear (Clear); Urine Color Colorless (Yellow); Urine Protein, UAD Negative (Negative); Urine Specific Gravity 1.007 (1.001-1.035); Urine Squamous Epithelial Cell FEW /hpf (<5); Urine Urobilinogen Normal (Negative); Urine WBC 1 /HPF (0-5); Urine pH 6.5 (5.0-9.0)
[2024-06-27 03:23] LABS: Chloride 103 mmol/L (98-107); Potassium 4.1 mmol/L (3.5-5.1); Sodium 137 mmol/L (136-145)
[2024-06-27 03:24] LABS: Anion Gap 9 (5-15); Calcium 9.6 mg/dL (8.7-10.4); Carbon Dioxide 25 mmol/L (20-31)
[2024-06-27 03:29] LABS: BUN/Creatinine Ratio 19.1 (10.0-20.0); Blood Urea Nitrogen 9 mg/dL (9-23); Glucose 89 mg/dL (74-106)
--- NOTE | 2024-06-27 05:27 | DVH ---
LIMITED OB ULTRASOUND > 14 WKS: HISTORY: 19 wks , vag bleed TECHNIQUE: Multiple real-time grayscale images of the gravid uterus with duplex Doppler color flow an d M-mode spectral analysis. TRANSDUCER: COMPARISON: US OB ULTRASOUND COMP GTR 14 WKS on DOS: 06/06/24 FINDINGS: IUP single live fetus at 19 weeks 1 day based on composite averages of the BPD, head circumference, a bdominal circumference and femur length Estimated weight 272 grams heart rate 148 beats per minute Cervix 4.1 cm Cephalic Presentation Posterior placenta without previa or abruption. IMPRESSION: 1. IUP single live fetus at 19 weeks 1 day AUA corresponding to an JOSY of November 20, 2024.
[2024-06-27 06:16] VITALS: BP 113/65; PULSE 78; RESP 16; TEMP 98; O2SAT 99
== END 2024-06-27 06:19 | disposition home or self-care (01) ==
LOC: ER 02:28
DX: O20.0 Threatened abortion (principal); Z3A.19 19 weeks gestation of pregnancy; Z98.890 Other specified postprocedural states
CPT/HCPCS: 36415; 76805; 80048; 81001; 84702; 85025; 86901

== ENCOUNTER 2024-10-21 13:43 | Observation (INO) | payer MEDICAID ==
--- NOTE | 2024-10-21 14:38 | DVH ---
BIOPHYSICAL PROFILE HISTORY: Poly Comparison Study: US OB ULTRASOUND COMP GTR 14 WKS on DOS: 06/27/24, US OB ULTRASOUND COMP GTR 14 WKS o n DOS: 06/06/24, US OB ULTRASOUND COMP LESS 14WKS on DOS: 05/18/24, US OB ULTRASOUND COMP LESS 14WKS on DOS: 04/25/24 TECHNIQUE: Multiple real-time grayscale sonographic images through the gravid uterus of the fetus wi th duplex Doppler color flow and M-mode spectral analysis FINDINGS: BIOPHYSICAL PROFILE: breathing score: 2 movement score: 2 tone score: 2 Quantitative SERVANDO score: 2 (SERVANDO: 21.5 Cm.) Total score: 8 The cervix is not visualized Single live fetus in cephalic presentation. heart rate 164 beats per minute. Posterior placenta without previa or abruption IMPRESSION: Biophysical profile score: 8
--- NOTE | 2024-10-22 08:24 | DVHDS2 ---
Physician Discharge Progress N Final Diagnosis: polyhydramnia resolved Operations or Procedures: Operations or Procedures nst reactive reviwed,sono Condition on Discharge: Good Disposition: Home Discharge Instructions: Diet: Regular Activity: No Restrictions, As Tolerated Follow Up/Referral: as scheduled. Medications: na Follow Up Care: Specialist: na Discharge Statement: "Patient was advised to return to the ER or call 911 if any headaches, dizziness, shortness of breath, chest pain, abdominal pain, bleeding, fevers, or worsening of medical condition. Patient was counseled about treatment plan, medications, possible side effects, patientverbalized understanding. All questions were answered to the best of my ability. This discharge took greater then 30 minutes in planning, reviewing documentation, counseling the patient, and discussing with other team members." Visit Coding OBGYN Date of Service: Oct 21, 2024 Billing Provider: ROMERO MCCLAIN DO DESIGN TECHNOLOGY TEACHER Common Visit Codes: [id number] OBS CARE (HIGH) DESIGN TECHNOLOGY TEACHER Procedure Codes: 12161-18- NON-STRESS TEST ROMERO MCCLAIN DO Oct 22, 2024 08:24
== END 2024-10-21 15:02 | disposition home or self-care (01) ==
LOC: LDRP 13:43
PROVIDERS: ADMIT Obstetrics & Gynecology; ATTEND Obstetrics & Gynecology
DX: Z36.89 Encounter for other specified antenatal screening (principal); Z3A.36 36 weeks gestation of pregnancy; Z79.899 Other long term (current) drug therapy
CPT/HCPCS: 59025; 76819; 81002; 94760; G0378

== ENCOUNTER 2024-10-26 12:52 | Inpatient (IN) | payer MEDICAID ==
[~2024-10-26] VITALS: Ht 30.5 cm; Wt 0.5 kg
[2024-10-26] MEDS ORDERED: LIDOCAINE 2%HCL (LOCAL ANESTH.) INJ 20ML MDV IJ PRN (14:00)
[2024-10-26] MEDS ORDERED: BUTORPHANOL TARTRATE 2 MG/1 ML VIAL IV PRN ×2 (14:00)
--- NOTE | 2024-10-26 14:17 | DVHHP2 ---
OB CC & HPI Date Date of Admission: Oct 26, 2024 Patient Identification: : 3 Para: 2 EDC: Nov 18, 2024 EGA: 36wks Chief Complaints: Reason for admission: rupture of membranes Indication for : desires repeat Admission Nurse Assessment Rev: No History of Present Complaints pt presents w/srom clear fld,previous csx2 and gdm. Past Medical History Cardiac: No pertinent Hx Pulmonary: No pertinent Hx Central Nervous System: No pertinent Hx GI: No pertinent Hx Hemotology/Oncology: No pertinent Hx Hepatobiliary: No pertinent Hx Psychiatric: No pertinent Hx Musculoskeletal: No pertinent Hx Rheumotologic: No pertinent Hx Infectious Disease: No peritnent Hx ENT: No pertinent Hx Renal/: No pertinent Hx Endocrine: No pertinent Hx Dermatology: No pertinent Hx Past Surgical History: No pertinent Hx, OB History OB History Ultrasounds: Normal mid trimester US Obstetrical Complications: Gestational Diabetes Medical Complications: None Allergies: Coded Allergies: NO KNOWN ALLERGIES (Unverified , 04/25/24) Home Meds Active Scripts Ondansetron Odt 4MG Tab (ZOFRAN PO) 4 Mg Tb, 4 MG PO Q6HP PRN, #15 TAB ODT TAB-DISSOLVE IN MOUTH, THEN SWALLOW Prov:ÁNGEL TIJERINA PAC 04/25/24 Acetaminophen (Tylenol Extra Strength) 500 Mg Tab, 500 MG PO Q4HP PRN, #30 TAB Prov:ÁNGEL TIJERINA PAC 04/25/24 Cephalexin (KEFLEX CAPSULE) 250 Mg Cp, 1 CAP PO QID for 7 Days, #28 CAP Prov:ÁNGEL TIJERINA PAC 04/25/24 Current Medications Current Medications Medications (Trade) Dose Ordered Sig/Orlin Route PRN Reason Start Time Stop Time Status Last Admin Lactated Ringer's 1,000 ml @ 125 mls/hr Q8H IV 10/26/24 14:00 UNV Butorphanol Tartrate (Stadol Injection) 1 mg Q4HPRN PRN IV MODERATE PAIN (4-6 PAIN SCALE) 10/26/24 14:00 UNV Butorphanol Tartrate (Stadol Injection) 2 mg Q4HPRN PRN IV SEVERE PAIN (7-10 PAIN SCALE) 10/26/24 14:00 UNV Lidocaine HCl (Xylocaine) 20 ml ONCE PRN IJ PERINEAL AREA DISCOMFORT 10/26/24 14:00 UNV Family & Social History Family/Social History Rubella: unknown RPR/VDRL: Negative GBS Status: Unknown HBsAG: Negative Review of Systems Constitutional: No symptom reported Ears, Nose, & Throat: No symptom reported Eyes: No symptom reported Pulmonary/Respiratory: No symptom reported Cardiovascular: No symptom reported Gastrointestinal: No symptom reported Genitourinary: No symptom reported Musculoskeletal: No symptom reported Skin: No symptom reported Psychiatric: No symptom reported Endocrine: No symptom reported Hemotologic/Lymphatic: No symptom reported OB Admission Exam Physical Exam HEENT: TMs Normal, Fontanelles Normal, Nasal Mucosa Normal, Eyes non-injected, Oropharynx Normal, PERRLA, Moist Membranes, EOMI Heart: Rhythm Normal Lungs: Clear Abdomen: Non tender Extremities: Normal Reflexes: Normal Cervical Dilatation: 2cm Effacement: 25% Station: -3 Membranes: Ruptured Amniotic Fluid: Clear Heart Rate: 130's Accelerations: Accelerations Present Decelerations: No Decelerations Short Term Variability: Present Drill Instructor Variability: Average (6-25) Contractions on Admission: < 5 Minutes Apart Intensity: Moderate OB Plan Plan Admitting Diagnosis: iup at 36wks with SROM desires rcs previous csx2 gdm Plan: Section Other Plan: informed consent obtained,possib of rds,prematurity risks and compl d/w pt all questions answered pt fully understands wishe sto proceed with rcs no tubal Visit Coding OBGYN Date of Service: Oct 26, 2024 Billing Provider: ROMERO MCCLAIN DO HUMAN RESOURCES ANALYST Common Visit Codes: [id number] OBS CARE (HIGH) HUMAN RESOURCES ANALYST Procedure Codes: 55533-28- NON-STRESS TEST ROMERO MCCLAIN DO Oct 26, 2024 14:17
[2024-10-26] MEDS ORDERED: MORPHINE SULF PF 5 MG/10 ML VIAL ONE (14:32)
[2024-10-26 14:43] LABS: Hematocrit 33.8 % (36.0-46.0); Hemoglobin 11.5 g/dL (12.2-16.2); Mean Corpuscular Hemoglobin 29.7 pg (28.0-32.0); Mean Corpuscular Volume 87.1 fL (80.0-100.0); Nucleated Red Blood Cells % 0.1 %
[2024-10-26 14:51] LABS: Urine Protein, UAD 1+ (Negative)
[2024-10-26 14:59] LABS: Amphetamine Screen, Urine Neg (NEGATIVE)
[2024-10-26 14:59] LABS: Carbon Dioxide 24 mmol/L (20-31); Chloride 106 mmol/L (98-107); Glucose 89 mg/dL (74-106); INR 0.96 (0.9-1.15); Partial Thromboplastin Time 25.6 SEC (24.5-34.5); Potassium 3.8 mmol/L (3.5-5.1); Prothrombin Time 10.2 sec (9.3-11.8); Sodium 139 mmol/L (136-145)
[2024-10-26 15:00] LABS: Albumin 3.8 g/dL (3.2-4.8); Anion Gap 9 (5-15); Bilirubin, Total 0.6 mg/dL (0.2-1.0); Total Protein 6.5 g/dL (5.7-8.2)
[2024-10-26] MEDS ORDERED: ONDANSETRON HCL 4 MG/2 ML VIAL IV PRN ×2 (15:00→16:15)
[2024-10-26] MEDS ORDERED: LACT. RINGERS/OXYTOCIN 20UNITS 1,000 ML IV ONE (15:00)
[2024-10-26] MEDS ORDERED: ceFAZolin 1GM/50ML 50 ML IV SCH (15:00)
[2024-10-26 15:02] LABS: Alanine Aminotransferase 202 U/L (7-40); Alkaline Phosphatase 132 U/L (46-116); BUN/Creatinine Ratio 9.8 (10.0-20.0); Blood Urea Nitrogen < 5 mg/dL (9-23); Calcium 8.7 mg/dL (8.7-10.4)
[2024-10-26 15:03] LABS: Barbiturate Scree,Urine Neg (NEGATIVE); Benzodiazephine Screen, Urine Neg (NEGATIVE); Cannabinoid Screen, Urine Neg (NEGATIVE); Cocaine Screen, Urine Neg (NEGATIVE); Opiate Scree,Urine Neg (NEGATIVE); Phencyclidine Screen, Urine Neg (NEGATIVE)
--- NOTE | 2024-10-26 15:32 | DVHOP2 ---
Operative Report DATE OF OPERATION:10/26/24 PREOPERATIVE DIAGNOSES: [IUP AT 36WKS WITH SROM ,GDM,PREVIOUS CSX2,DESIRES RCS] POSTOPERATIVE DIAGNOSES: [SAME] OPERATION PERFORMED: Repeat Section FINDINGS: [F] . Apgars of [8] and [9]. Weight [6-7] [GOOD] crying tone. [CLEAR] amniotic fluid. Placenta and three-vessel were intact. Normal tubes, ovaries, and uterus. SURGEON: Leslie Wilkes D.O. WELDER BOILERMAKER: photo optics technician, [JANICE]. ANESTHESIOLOGIST: Marquez ANESTHESIA: [Duramorph spinal, regional]. COMPLICATIONS: [NONE]. ESTIMATED BLOOD LOSS: [800] mL. BLOOD PRODUCTS USED: [NONE]. PROCEDURE IN DETAIL: The patient was taken to the operating room, placed in sitting position, and spinal was placed without difficulty. She was then prepped and draped in a sterile fashion. A low Pfannenstiel incision was made scapel. At this point, it was carried down through the rectus fascia, nicked in the midline, and carried laterally. The rectus muscles were in the midline. Peritoneum was identified and entered with sharp dissection. Vesicouterine peritoneum was taken off the lower uterine segment. A lower uterine transverse incision was made with a scalpel down the chorionic membranes, ruptured with hemostat. was in vertex position. One hand was placed in the lower uterine segment. Head was essentially delivered spontaneously. Nose and mouth were bulb suctioned. Shoulders and torso were delivered without difficulty. Again, pharynx, nose, and mouth were re-suctioned with vigorous crying tone. Cord was cut. The was handed off to the awaiting Respiratory. At this point, umbilical blood sample was taken. Placenta was removed. Uterus was exteriorized, cleared off all clots and debris, irrigated, and closed with a double layer of 0-Vicryl. The vesicouterine peritoneum was incorporated into this closure. We had complete hemostasis. EBL was [800] mL. The instrument, lap, and sponge count was correct x1. The uterus was placed back into the peritoneum. The peritoneal cavity was re-inspected and the lower uterine incision with good hemostasis. We closed the peritoneum with running continuous of 2-0 Vicryl. The Rectus Fascia was closed with 0-PDS, running continuous, looped-0. The skin was closed undermined, irrigated, and close with osiel. CONDITION: The patient's and the infant's condition is stable and but guarded. Visit Coding OBGYN Date of Service: Oct 26, 2024 Billing Provider: LESLIE WILKES DO EYE CLINIC MANAGER Common Visit Codes: [id number] INP/OBS CARE (HIGH) EYE CLINIC MANAGER Procedure Codes: [id number] DELIVERY ONLY LESLIE WILKES DO Oct 26, 2024 15:32
--- NOTE | 2024-10-26 15:33 | POSTOP ---
Post-Operative Note Post-Operative Note Preop Diagnosis IUP AT 36WKS WITH SROM,GDM,DESIRES RCS Postop Diagnosis: SAME Operation performed RCS Specimen BABY GIRL,APGARS 9-9,VX, Anesthesia: Regional Anesthesiologist: APGYHEENA Blood Loss(fluid mgmt) 800ML Surgeon Leslie Wilkes Investor Relations Director JANICE Implant NA Complications & Mgmt NONE Date 10/26/24 Time 15:32 Visit Coding OBGYN Date of Service: Oct 26, 2024 Billing Provider: LESLIE WILKES DO ASH COLLECTOR Common Visit Codes: [id number] INP/OBS CARE (HIGH) ASH COLLECTOR Procedure Codes: [id number] DELIVERY ONLY LESLIE WILKES DO Oct 26, 2024 15:33
[2024-10-26] MEDS ORDERED: DOCU-94 PO (15:34)
[2024-10-26] MEDS ORDERED: HYDR-4072 PO (15:34)
[2024-10-26] MEDS ORDERED: IBUP-1456 PO ×2 (15:34→22:01)
[2024-10-26] MEDS ORDERED: diphenhdrAMINE HCL 50 MG/1 ML VL ONE (15:37)
[2024-10-26 16:01] VITALS: O2SAT 99
[2024-10-26] MEDS ORDERED: diphenhdrAMINE HCL 50 MG/1 ML VL IV PRN (16:15)
[2024-10-26] MEDS ORDERED: KETOROLAC TROMETH 30 MG/ML 1ML VIAL IV PRN (16:15)
[2024-10-26] MEDS ORDERED: MEPERIDINE HCL (25 MG/ML) 1ML VIAL IV PRN (16:15)
[2024-10-26] MEDS ORDERED: HYDROmorphone HCL 2 MG/ML VL/or syr IV PRN ×2 (16:15)
[2024-10-26] MEDS ORDERED: ACETAMINOPHEN IV 1000 MG/100ML (10MG/ML) IV PRN ×2 (16:15→17:30)
[2024-10-26] MEDS ORDERED: NALOXONE HCL 0.4 MG/ML VIAL IV PRN (16:15)
[2024-10-26 17:00] VITALS: BP 114/67; PULSE 79; RESP 20; TEMP 98.1; O2SAT 97
[2024-10-26] MEDS: LACTATED RINGER'S 1,000 ML IV SCH (17:05)
[2024-10-26 18:00] VITALS: BP 121/70; PULSE 73; RESP 16; O2SAT 98
[2024-10-26 19:11] VITALS: BP 130/83; PULSE 93; RESP 16
[2024-10-26 21:37] LABS: Hematocrit 34.6 % (36.0-46.0); Hemoglobin 11.6 g/dL (12.2-16.2); Mean Corpuscular Hemoglobin 29.1 pg (28.0-32.0); Mean Corpuscular Volume 87.3 fL (80.0-100.0); Nucleated Red Blood Cells % 0.1 %
[2024-10-26] MEDS ORDERED: PREN-96 PO (22:01)
[2024-10-26 23:00] VITALS: BP 102/58; PULSE 90; RESP 16; TEMP 98.3; O2SAT 95
[2024-10-26 23:16] VITALS: BP 102/58; PULSE 92; RESP 16; O2SAT 96
[2024-10-26] MEDS: ceFAZolin 1GM/50ML 50 ML IV SCH (23:42)
[2024-10-27] VITALS (17 sets, daily range): BP systolic 96–140; BP diastolic 56–77; PULSE 67–98; RESP 16–18; TEMP 98–98.7; O2SAT 94–98
--- NOTE | 2024-10-27 04:23 | DVHPN2 ---
Progress Note Date Seen: Oct 27, 2024 Subjective S: bleeding is less, advancing diet as tolerated, denies lightheaded/dizziness, pain well controlled with medications, garcia catheter in place, no flatus/BM yet, not ambulating yet, vital signs Vital Sign Date Time Temp Pulse Resp B/P (MAP) Pulse Ox O2 Delivery O2 Flow Rate FiO2 10/27/24 03:19 98.3 86 17 121/64 (83) 96 98.3 10/26/24 19:00 Room Air 10/26/24 17:23 0.0 10/26/24 16:01 99 Total Intake and Output 10/26/24 10/26/24 10/27/24 15:00 23:00 07:00 Output Total 450 ml Balance -450 ml medications Current Medications Medications Dose Ordered Sig/Orlin Route Start Time Stop Time Status Last Admin Dose Admin Lactated Ringer's 1,000 ml @ 125 mls/hr Q8H IV 10/26/24 14:00 10/26/24 17:05 125 MLS/HR Butorphanol Tartrate 1 mg Q4HPRN PRN IV 10/26/24 14:00 Butorphanol Tartrate 2 mg Q4HPRN PRN IV 10/26/24 14:00 Lidocaine HCl 20 ml ONCE PRN IJ 10/26/24 14:00 Ondansetron HCl 4 mg Q4HP PRN IV 10/26/24 15:00 Hydromorphone HCl 0.5 mg Q10M PRN IV 10/26/24 16:15 10/26/24 16:56 UNV Diphenhydramine HCl 25 mg Q4HP PRN IV 10/26/24 16:15 Cefazolin Sodium 50 ml @ 100 mls/hr Q8H IV 10/26/24 23:00 10/27/24 15:29 10/26/24 23:42 100 MLS/HR Acetaminophen 1,000 mg Q8HPRN PRN IV 10/26/24 17:30 10/27/24 14:01 laboratory and microbiology Laboratory Tests 10/26/24 21:05 10/26/24 14:09 Test 10/26/24 14:09 Range/Units Serum Glucose 89 74-106 mg/dL Objective O: VSS Chest: heart sounds normal and lung sounds clear bilaterally Abd: soft, non-tender, fundus at U/firm/midline, active bowel sounds, no rebound or guarding Incision: sylke dressing open to air, clean/dry/intact Ext: Non-tender, No edema, 2+ BLE DTRs Lochia: minimal See lab results Problems(with codes): (1) S/P repeat low transverse Assessment/Plan A/P: 33yo now POD#1 s/p repeat -Continue with routine post-op care Plan discussed with: Patient, Spouse Visit Coding OBGYN Date of Service: Oct 27, 2024 Billing Provider: BILLIE GREENE CNM ECHO TECH Common Visit Codes: [id number] INP/OBS CARE(HIGH) BILLIE GREENE CNM Oct 27, 2024 04:23
[2024-10-27 06:57] LABS: Hematocrit 32.3 % (36.0-46.0); Hemoglobin 10.9 g/dL (12.2-16.2); Mean Corpuscular Hemoglobin 30.0 pg (28.0-32.0); Mean Corpuscular Volume 88.4 fL (80.0-100.0); Nucleated Red Blood Cells % 0.0 %
[2024-10-27] MEDS: ceFAZolin 2 GM/D5W50ml 50 ML IV ONE (08:00)
[2024-10-27] MEDS ORDERED: HYDROcodone-ACET 5/325MG TAB PO PRN ×2 (10:45)
[2024-10-27] MEDS: IBUPROFEN 800 MG TAB PO PRN (15:47)
[2024-10-27] MEDS: SIMETHICONE 80 MG CHEWABLE TABLET PO SCH (19:35)
[2024-10-27] MEDS: NALBUPHINE HCL 10 MG/1ml INJECTION SUBCUT ONE (19:54)
[2024-10-27] MEDS: DOCUSATE SOD 100 MG CAP PO SCH (21:36)
--- NOTE | 2024-10-28 00:44 | DVHPN2 ---
Progress Note Date Seen: Oct 28, 2024 Subjective S: pt report pain well controlled with meds, bleeding is scant, , denies dizziness, GALVIN, blurry vision, ambulating well, eating well, voiding, passed flatus but no BM vital signs Vital Sign Date Time Temp Pulse Resp B/P (MAP) Pulse Ox O2 Delivery O2 Flow Rate FiO2 10/27/24 23:20 98.7 91 17 140/71 (94) 98 98.7 10/27/24 19:00 Room Air 10/26/24 17:23 0.0 10/26/24 16:01 99 Total Intake and Output 10/27/24 10/27/24 10/28/24 15:00 23:00 07:00 Output Total 250 ml 1900 ml Balance -250 ml -1900 ml medications Current Medications Medications Dose Ordered Sig/Orlin Route Start Time Stop Time Status Last Admin Dose Admin Ondansetron HCl 4 mg Q4HP PRN IV 10/26/24 15:00 Hydromorphone HCl 0.5 mg Q10M PRN IV 10/26/24 16:15 10/26/24 16:56 UNV Diphenhydramine HCl 25 mg Q4HP PRN IV 10/26/24 16:15 Docusate Sodium 100 mg Q12HR PO 10/27/24 22:00 10/27/24 21:36 100 MG Dimethicone 80 mg QID PO 10/27/24 12:00 10/27/24 21:35 80 MG Ibuprofen 800 mg Q8HP PRN PO 10/27/24 10:45 10/27/24 15:47 800 MG Acetaminophen/ Hydrocodone Bitart 1 tab Q4HPRN PRN PO 10/27/24 10:45 Hold Acetaminophen/ Hydrocodone Bitart 2 tab Q4HPRN PRN PO 10/27/24 10:45 Hold Oxycodone HCl 10 mg Q6HPRN PRN PO 10/27/24 21:15 10/27/24 21:21 10 MG laboratory and microbiology Laboratory Tests 10/27/24 06:37 10/26/24 14:09 Test 10/26/24 14:09 Range/Units Serum Glucose 89 74-106 mg/dL Objective O: VSS Chest: heart and lung sounds normal Abd soft, non-tender, fundus firm, BS, no rebound or guarding Incision - sylke dressing open to air, clean/dry/intact BLE: Non-tender, +1 non pitting edema Lochia - minimal See lab results Problems(with codes): (1) S/P repeat low transverse Assessment/Plan A: 33 yo ppd#2 s/p R C/S doing well. Rh status + Breast feeding Rubella status immune Pain controlled P: Reevaluate for D/C in the evening Rx sent to pharmacy precautions reviewed Bowel regimen: encouraged to ambulate more often to facilitate bowel movement Plan discussed with: Patient, Spouse OSCAR IVAN RODRIGUEZ Oct 28, 2024 00:44
[2024-10-28 03:22] VITALS: BP 121/75; PULSE 75; RESP 17; TEMP 98.3; O2SAT 97
[2024-10-28] MEDS ORDERED: TETANUS-DIPTH-ACEL PERTUSSIS 0.5ML SYR Tdap IM ONE (05:30)
[2024-10-28] MEDS: METOCLOPRAMIDE HCL 5MG/ml INJ 2ml VIAL IV ONE (06:30)
[2024-10-28] MEDS: ONDANSETRON HCL 4 MG/2 ML VIAL IV ONE (06:30)
[2024-10-28 07:00] VITALS: BP 98/67; PULSE 83; RESP 16; TEMP 97.9; O2SAT 96
[2024-10-28 11:00] VITALS: BP 103/53; PULSE 81; RESP 16; TEMP 98.1; O2SAT 97
[2024-10-28 15:15] VITALS: BP 116/78; PULSE 93; RESP 18; TEMP 98.2; O2SAT 97
--- NOTE | 2024-10-29 08:12 | DVHDS2 ---
Obstetrics Discharge Summary Obstetrics Discharge Summary Date of Admission: Oct 26, 2024 Date of Discharge: Oct 28, 2024 Reason For Admission: Onset of Labor, PROM Procedures: NST Intrapartum Procedures: (Low Cervical Transverse) Procedures: None, Curettage Discharge Diagnosis: Delivery Discharge Information: Activity (Other), Diet (Routine), Medications (Name:), Instructions (Routine), Discharge to (Home), Discarge date (10-28) Visit Coding OBGYN Date of Service: Oct 28, 2024 Billing Provider: ROMERO MCCLAIN DO ART INSTRUCTOR Common Visit Codes: [id number] INP/OBS CARE (HIGH) ART INSTRUCTOR Procedure Codes: [id number] DELIVERY ONLY ROMERO MCCLAIN DO Oct 29, 2024 08:12
== END 2024-10-28 16:54 | disposition home or self-care (01) | DRG 540 ==
LOC: LDRP 12:52 → OBSVTOIN 13:53 → LDRP 17:05
PROVIDERS: ADMIT Obstetrics & Gynecology; ATTEND Obstetrics & Gynecology
PROC: 10D00Z1 Extraction of Products of Conception, Low, Open Approach (ICD-10-PCS; principal; 2024-10-26 14:48)
DX: O24.429 Gestational diabetes mellitus in childbirth, unspecified control (principal); O60.14X0 Preterm labor third trimester with preterm delivery third trimester, not applicable or unspecified; O34.219 Maternal care for unspecified type scar from previous cesarean delivery; Z37.0 Single live birth; Z3A.36 36 weeks gestation of pregnancy; O42.913 Preterm premature rupture of membranes, unspecified as to length of time between rupture and onset of labor, third trimester
CPT/HCPCS: 36415; 59025; 59409; 80053; 80307; 81001; 85025; 85610; 85730; 86703; 86762; 86780; 86803; 86850; 86900; 86901; 87340; 94760; 94762; 96360; 96361; G0378; J0169; J2590